=== PATIENT | female | born 1990 | race Caucasian/White ===

== ENCOUNTER 2016-07-24 19:29 | Emergency (ER) | payer SELFPAY ==
[~2016-07-24] VITALS: Ht 167.6 cm; Wt 87.0 kg
[~2016-07-24 19:29] MED LIST: FAMO-18 PO
[2016-07-24 19:39] VITALS: Ht 167.6 cm; Wt 87.0 kg
[2016-07-24] MEDS ORDERED: ONDANSETRON (ODT) 4 MG TAB ODT STA (19:51)
[2016-07-24] MEDS ORDERED: ACETAMINOPHEN 325 MG TAB PO ONE (20:00)
[2016-07-24] MEDS ORDERED: FAMOTIDINE 20 MG TAB PO ONE (20:00)
[2016-07-24 20:26] LABS: URINE BLOOD (Dip) POC Negative (NEGATIVE)
--- NOTE | 2016-07-24 20:51 | ERD ---
ER Documentation Chief Complaint Date/Time DATE: 07/24/16 TIME: 20:43 Chief Complaint weakness, dizziness, diarrhea , abd pain x 3 days HPI This 25-year-old female presents to emergency department today with low abdominal pain, back pain, and history of gastric ulcer. Patient reports symptoms started 3 days ago. Patient states that she has never had an upper or lower GI series. Patient told she had a gastric ulcer by evaluation from primary care physician. Patient states that she is on no prophylactic treatment , she does not use nonsteroidal anti-inflammatory medication. Patient reports that she has been able to eat, vomited once this morning after eating. He reports feeling nauseous after she eats. Patient states diarrhea stool described as black and tarry. Last menstrual period 07/11/16 described as dark and heavy. Patient denies dysuria, hematuria,, fever, chest pain, or shortness of breath. ROS All systems reviewed and are negative except as per history of present illness. Medications Home Meds Active Scripts Famotidine* (Pepcid*) 20 Mg Tablet, 20 MG PO BID for 4 Days, TAB Prov:TATA BARNEY PA-C 08/17/15 Allergies Allergies: Coded Allergies: Sulfa (Sulfonamide Antibiotics) (Verified Allergy, Unknown, 03/04/14) PMhx/Soc History of Surgery: Yes (appy 2013) Anesthesia Reaction: No Hx Neurological Disorder: No Hx Respiratory Disorders: No Hx Cardiac Disorders: No Hx Psychiatric Problems: No Hx Miscellaneous Medical Probl: No Hx Alcohol Use: Yes Hx Substance Use: Yes (Marijuana) Hx Tobacco Use: No Smoking Status: Current some day smoker Physical Exam Vitals Vital Signs Date Time Temp Pulse Resp B/P Pulse Ox O2 Delivery O2 Flow Rate FiO2 07/24/16 19:39 98.5 68 20 122/68 99 Vitals stable, triage notes reviewed Physical Exam Const: No acute distress Head: Eyes: Normal Conjunctiva, PERRLA, EOMI ENT: Normal External Ears, Nose and Mouth mucous membranes. Neck: Resp: Chest rise and fall symmetrically, no respiratory distress Cardio: Abd: Abdomen soft, generalized low abdominal tenderness. No CVA tenderness Skin: Back: Ext: Neur: Awake and alert Psych: Normal Mood and Affect Results 24 hrs Laboratory Tests Test 07/24/16 20:06 07/24/16 20:29 Stool Occult Blood NEGATIVE Bedside Urine pH (LAB) 5.5 Bedside Urine Protein (LAB) Trace Bedside Urine Glucose (UA) Negative Bedside Urine Ketones (LAB) 1+ Bedside Urine Blood Negative Bedside Urine Nitrite (LAB) Negative Bedside Urine Leukocyte Esterase (L Negative Current Medications Medications (Trade) Dose Ordered Sig/Christine Route PRN Reason Start Time Stop Time Status Last Admin Dose Admin Ondansetron HCl (Zofran Odt) 4 mg ONCE STAT ODT 07/24/16 19:51 07/24/16 19:59 DC 07/24/16 20:15 Famotidine (Pepcid) 40 mg ONCE ONCE PO 07/24/16 20:00 07/24/16 20:01 DC 07/24/16 20:15 Acetaminophen (Tylenol Tab) 650 mg ONCE ONCE PO 07/24/16 20:00 07/24/16 20:01 DC 07/24/16 20:15 Interpretation text Urine negative for nitrates, microscopic hematuria, or leukocytosis, normal urinalysis Procedures/MDM This 25-year-old female presents to emergency department today with abdominal pain 3 days. Pain described as sharp and crampy lower abdomen intermittent, back pain, nausea and vomiting after eating this morning. Patient has black tarry stools, described as diarrhea, and history of gastric ulcer without diagnostic testing. GI bleed, hemorrhoids, urinary tract infection, gastritis, while working diagnoses. Urinalysis negative for evidence of infection, stool for occult blood negative. Patient receives Zofran, Pepcid, and Tylenol for pain reassessed after 30 minutes with improvement of symptoms. Patient will be discharged home with Pepcid, instructed to follow-up with primary care physician for referral to seismographer. I feel the patient is stable for discharge at this time with outpatient management by primary care. I have discussed results, examination findings, the treatment plan with the patient and family present prior to discharge. Indications for emergent reevaluation, side effects of medication were also discussed. All questions were answered. Patient verbalizes understanding and agrees with plan of care. Departure Diagnosis: Primary Impression: Gastritis Gastritis type: unspecified gastritis Chronicity: unspecified Gastritis bleeding: without bleeding Qualified Code: K29.70 - Gastritis without bleeding, unspecified chronicity, unspecified gastritis type Condition: Good Patient Instructions: Gastritis Vs. Ulcer, Understanding Gastritis Referrals: [facility] Additional Instructions: Thank you for for coming to [facility] for your care today. Please ask your nurse or provider if you have questions about your care today and do not leave until all your questions have been answered. Please use any medications given as directed and follow-up with your doctor (or the doctor you were referred to) in the next 2-3 days. If you do not have a primary care doctor you may follow up at the [facility] [place] (listed below). You may also use motrin and tylenol as needed for fever and/or pain unless instructed otherwise by your provider or nurse. Indications for more urgent follow-up have been discussed, but you may return to the Emergency Department at ANY time for any worrisome or worsening symptoms. If you have abdominal pain, please know that no test or exam you received is perfect and you should follow up within 8 hours for continued pain. If you had any imaging studies today, such as an X-Ray or CT Scan, these studies will be reviewed later by a radiologist. You will be called if there are important findings that were not identified today, so make sure the contact information you provided at registration is correct. If you received any narcotic pain control medicine today, such as Vicodin, Morphine or Dilaudid, your coordination and judgment may be affected for a number of hours. Please do not drive or operate heavy machinery, and you may want someone to assist you at home. If you were given a prescription for narcotic medication, be aware that it is very addictive- use sparingly and only if necessary. JYOTHI FERNANDO Jul 24, 2016 20:51
[2016-07-24] MEDS ORDERED: FAMO-18 PO (20:55)
== END 2016-07-24 21:11 | disposition home or self-care (01) ==
LOC: FTE 19:29
DX: K29.70 Gastritis, unspecified, without bleeding (principal); F17.210 Nicotine dependence, cigarettes, uncomplicated
CPT/HCPCS: 81003; 82270; 99283